=== PATIENT | male | born 1980 | race African-American/Black ===

== ENCOUNTER 2024-02-08 12:47 | Emergency (ER) | payer SELFPAY ==
[~2024-02-08] VITALS: Ht 185.4 cm; Wt 118.0 kg
[2024-02-08 12:55] VITALS: O2SAT 98
[2024-02-08] MEDS: KETOROLAC 60MG/2ML VIAL IM ONE (13:45)
[2024-02-08] MEDS ORDERED: IBUP-2029 MT (15:04)
[2024-02-08 16:25] VITALS: BP 148/105; PULSE 85; RESP 19; TEMP 98.4
== END 2024-02-08 16:26 | disposition home or self-care (01) ==
LOC: ER 12:47
DX: M79.18 Myalgia, other site (principal); F32.A Depression, unspecified; F41.9 Anxiety disorder, unspecified; V98.8XXA Other specified transport accidents, initial encounter; Y93.89 Activity, other specified; Y92.89 Other specified places as the place of occurrence of the external cause; Y99.8 Other external cause status
CPT/HCPCS: 73502; 96372; 99283; J1885; Z7610